=== PATIENT | female | born 1995 | race Caucasian/White ===

== ENCOUNTER 2025-10-04 07:06 | Emergency (ER) | payer MEDICAID, OTHER ==
[~2025-10-04] VITALS: Ht 177.8 cm; Wt 106.9 kg
[2025-10-04 07:09] VITALS: TEMP 98.4
--- NOTE | 2025-10-04 07:32 | ED.PDOC ---
GI ASSESSMENT HPI Comments A 30 YEAR OLD FEMALE PRESENTS TO THE ED WITH COMPLAINT OF PELVIC PAIN. PATIENT REPORTS THAT SHE HAS BEEN EXPERIENCING SUPRAPUBIC PAIN WITH ASSOCIATED RADIATION TO HER LEFT PELVIC REGION FOR THE PAST 3 DAYS. PATIENT RELAYS THAT HER PAIN ALSO RADIATES INTO HER BACK. PATIENT STATES THAT SHE CURRENTLY HAS AN IUD IN PLACE, HAVING BEEN PLACED A LONG TIME AGO. PATIENT STATES SHE ALSO SUFFERS FROM CHRONIC CONSTIPATION, CURRENTLY EXPERIENCING IT AT THIS TIME. PATIENT DENIES FEVER, CHILLS, SHORTNESS OF BREATH, CHEST PAIN, DIARRHEA, DYSURIA, NAUSEA, VOMITING, HEADACHE, OR OTHER COMPLAINTS. NO OTHER SYMPTOMS OR MODIFYING FACTORS AT THIS TIME. PATIENT IS ALERT, ORIENTED X 4, AND HAS STEADY GAIT. Chief Complaint: Abdominal Pain Time Seen by MD: 07:31 Reviewed Notes: Nurses Notes, Medications, Allergies Allergies: Coded Allergies: NO KNOWN ALLERGIES (Unverified , 10/04/25) Information Source: Patient Mode of Arrival: Ambulatory Timing: Days Duration: Since onset Prehospital treatment: None Quality: Aching, Cramping, Colicky Vomitus: None Stool: Normal Severity: Moderate Recent: None Pain Location: LLQ Modifying Factors: Nothing Associated sign and symptoms: Other (PELVIC PAIN ) Past Medical History PAST MEDICAL HISTORY: Anxiety, High Lipids Past Medical History (Other): CHRONIC CONSTIPATION Surgical History: Denies all surgeries 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 History Family History Family History: Reviewed,noncontributory to illness Social History Smoker: Non-Smoker Alcohol: Denies ETOH Use Drugs: Denies Drug Use Lives In: Home Constitutional: denies: chills, diaphoresis, fatigue, fever, malaise, sweats, weakness, others EENTM: denies: blurred vision, double vision, ear bleeding, ear discharge, ear drainage, ear pain, ear ringing, eye pain, eye redness, hearing loss, mouth pain, mouth swelling, nasal discharge, nose bleeding, nose congestion, nose pain, photophobia, tearing, throat pain, throat swelling, voice changes, others Respiratory: denies: cough, hemoptysis, orthopnea, SOB at rest, shortness of breath, SOB with excertion, stridor, wheezing, others Cardiovascular: denies: chest pain, dizzy spells, diaphoresis, Dyspnea on exertion, edema, irregular heart beat, left arm pain, lightheadedness, palpitations, PND, syncope, others Gastrointestinal: reports: abdominal pain; denies: abdomen distended, blood streaked bowels, constipated, diarrhea, dysphagia, difficulty swallowing, hemat emesis, melena, nausea, poor appetite, poor fluid intake, rectal bleeding, rectal pain, vomiting, others Genitourinary: reports: pain (LEFT PELVIC ); denies: abnormal vagina bleeding, burning, dyspareunia, dysuria, flank pain, frequency, hematuria, incontinence, , vagina discharge, urgency, others Neurological: denies: dizziness, fainting, headache, left sided numbness, left sided weakness, numbness, paresthesia, pre-existing deficit, right sided numbness, right sided weakness, seizure, speech problems, tingling, tremors, weakness, others Musculoskeletal: denies: back pain, gout, joint pain, joint swelling, muscle pain, muscle stiffness, neck pain, others Integumetry: denies: bruises, change in color, change in hair/nails, dryness, laceration, lesions, lumps, rash, wounds, others Allergic/Immunocompromised: denies: Difficulty Healing, Frequent Infections, Hives, Itching, others Hematologic/Lymphatic: denies: anemia, blood clots, easy bleeding, easy bruising, swollen glands, others Endocrine: denies: excessive hunger, excessive sweating, excessive thirst, excessive urination, flushing, intolerance to cold, intolerance to heat, unexplained weight gain, unexplained weight loss, others Psychiatric: denies: anxiety, bipolar disorder, depression, hopeless, panic disorder, schizophrenia, sleepless, suicidal, others All Other Systems: Reviewed and Negative Physical Exam General Appearance: No Apparent Distress, Obese HEENT: Normal ENT Inspection, PERRL/EOMI Neck: Full Range of Motion, Non-Tender, Normal, Normal Inspection Respiratory: Chest Non-Tender, Lungs Clear, No Accessory Muscle Use, No Respiratory Distress, Normal Breath Sounds Cardiovascular: No Edema, No JVD, No Murmur, No Gallop, Normal Peripheral Pulses, Regular Rate/Rhythm Breast Exam: Deferred Gastrointestinal: No Organomegaly, No Pulsatile Mass, Normal Bowel Sounds, Soft, Suprapubic (TENDERNESS, NO GUARDING AND REBOUND TENDERNESS. ), Tenderness (LEFT LEFT PELVIC. ) Genitalia: Deferred Pelvic: Normal External Exam, Tender Uterus, Other (TENDERNESS ON LEFT PELVIC, NO GUARDING AND REBOUND TENDERNESS. 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 Was a procedure done?: No GI differential Dx Differential Diagnosis: Constipation, Gastritis/PUD, Gastroenteritis, Inflammatory BD, UTI, Kidney Stone, Other (OVARIAN CYST, UTERINE FIBROID ) X-Ray, Labs, Meds, VS Vital Signs Date Time Temp Pulse Resp B/P (MAP) Pulse Ox O2 Delivery O2 Flow Rate FiO2 10/04/25 08:37 75 16 127/85 (99) 100 10/04/25 07:09 98.4 66 18 123/84 99 98.4 Lab Test 10/04/25 07:35 10/04/25 07:34 Range/Units Urine Color Yellow Yellow Urine Clarity Clear Clear Urine pH 6.0 5.0-9.0 Urine Specific [place] 1.023 1.001-1.035 Urine Protein Negative Negative Urine Ketones Negative Negative Urine Blood Negative Negative /uL Urine Nitrite Negative Negative Urine Bilirubin Negative Negative Urine Urobilinogen Normal Negative mg/dL Urine Leukocyte Esterase Negative Negative /uL Urine RBC 3 0 - 4 /hpf Urine Microscopic WBC 1 0-5 /HPF Urine Squamous Epithelial Cells Few <5 /hpf Urine Bacteria None seen None Seen /hpf Urine Glucose Normal Normal mg/dL Urine Test Negative Negative White Blood Count 7.5 4.4-10.8 10^3/uL Red Blood Count 4.69 4.0-5.20 10^6/uL Hemoglobin 13.7 12.2-16.2 g/dL Hematocrit 41.2 36.0-46.0 % Mean Corpuscular Volume 87.8 80.0-100.0 fL Mean Corpuscular Hemoglobin 29.2 28.0-32.0 pg Mean Corpuscular Hemoglobin Concent 33.3 32.0-36.0 g/dL Red Cell Distribution Width 13.0 11.8-14.3 % Platelet Count 310 140-450 10^3/uL Mean Platelet Volume 7.4 6.9-10.8 fL Neutrophils (%) (Auto) 64.0 37.0-80.0 % Lymphocytes (%) (Auto) 28.8 10.0-50.0 % Monocytes (%) (Auto) 4.5 0.0-12.0 % Eosinophils (%) (Auto) 1.9 0.0-7.0 % Basophils (%) (Auto) 0.8 0.0-2.0 % Neutrophils # (Auto) 4.8 1.6-8.6 10 ^3/uL Lymphocytes # (Auto) 2.2 0.4-5.4 10 ^3/uL Monocytes # (Auto) 0.3 0-1.3 10 ^3/uL Eosinophils # (Auto) 0.1 0-0.8 10 ^3/uL Basophils # (Auto) 0.1 0-0.2 10 ^3/uL Nucleated Red Blood Cells 0.2 % Sodium Level 143 136-145 mmol/L Potassium Level 4.4 3.5-5.1 mmol/L Chloride Level 108 H 98-107 mmol/L Carbon Dioxide Level 26 20-31 mmol/L Anion Gap 9 5-15 Blood Urea Nitrogen 7 L 9-23 mg/dL Creatinine 1.02 0.550-1.02 mg/dL Glomerular Filtration Rate Calc 76 >90 mL/min BUN/Creatinine Ratio 6.9 L 10.0-20.0 Serum Glucose 106 74-106 mg/dL Calcium Level 9.6 8.7-10.4 mg/dL PELVIC US: 1. Grossly unremarkable pelvic ultrasound.PATIENT: ROSA HASSAN ACCT: [id number]: [id number] : 1995 LOC: ER ROOM / BED: / AGE / SEX: 30 / F ADM STATUS: REG ER SERVICE 0728 ORDERING PHYSICIAN: KAREN ALCARAZ PROCEDURE(s): PELUS - PELVIC REASON: SUPRAPUBIC PAIN TO LEFT PELVIC ORDER NUMBER(s): [id number], ACCESSION NUMBER(s): [id number] INDICATION: SUPRAPUBIC PAIN TO LEFT PELVIC TECHNIQUE: Multiple real-time grayscale transabdominal and transvaginal sonographic images along with color and duplex Doppler of the uterus and ovaries were obtained. COMPARISON: None FINDINGS: The uterus measures 7.1 x 3.4 x 4.3 cm. Intrauterine device in satisfactory position. Endometrium measures 0.4 cm. Right ovary measures 2.9 x 2.1 x 2.7 cm with normal Doppler color flow Left ovary measures 2.1 x 1.7 x 2.9 cm with normal Doppler color flow IMPRESSION: 1. Grossly unremarkable pelvic ultrasound. ATED BY: СЕРГЕЙ MCINTOSH MD DICTATED DATE/TIME: 10/04/25849 SIGNED BY: СЕРГЕЙ MCINTOSH MD SIGNED DATE/TIME: 10/04/25849 CC: X-Ray, Labs, Meds, VS Comment EXTERNAL MEDICAL RECORDS REVIEWED: [NONE] INDEPENDENT HISTORIANS: [NONE] SOCIAL DETERMINANTS OF HEALTH: [NONE] LABS ORDERED: UA, CBC, BMP, PREG URINE REVIEWED AND INTERPRETED RESULTS: PELVIC US, XR KUB IMAGING ORDERED: PELVIC US, XR KUB INTERPRETED BY ME. CONSTIPATION NOTED. NO FRACTURES OR DISLOCATION. PENDING RADIOLOGIST REPORT. TREATMENTS ORDERED: NONE PROCEDURES PERFORMED: NONE CRITICAL CARE TIME: NONE I HAVE DISCUSSED THE PATIENT WITH THE ATTENDING PHYSICIAN DR. VIZCAINO AND HE AGREES WITH THE PATIENT'S PLAN OF CARE AND DISPOSITION. BASED ON HISTORY OF PRESENT ILLNESS, AND PHYSICAL EXAM, PATIENT WILL BE DISCHARGED HOME. DISCUSSED PLAN FOR DISCHARGE HOME WITH RX LACTULOSE. SHARED DECISION MAKING: DISCUSSED WITH PATIENT THAT THEIR WORKUP WAS NORMAL. PATIENT INSTRUCTED TO FOLLOW UP WITH PRIMARY CARE PROVIDER IN 1-2 DAYS FOR RE-EVALUATION OF SYMPTOMS. PATIENT VERBALIZES UNDERSTANDING TO RETURN TO ED FOR NEW OR WORSENING SYMPTOMS OR IF FOLLOW UP WITH PCP CANNOT BE OBTAINED. PATIENT FEELS COMFORTABLE GOING HOME AT THIS TIME. ALL QUESTIONS ADDRESSED AT TIME OF DISCHARGE. Time of 1ST Reevaluation: 09:33 Reevaluation 1ST: Improved Patient Education/Counseling: Diagnosis, Treatment, Need For Follow Up Family Education/Counseling: Diagnosis, Treatment, No Family Present Medical Screening: No EMC Exist At This Time SEPSIS Sepsis Screen Date sepsis recognized/suspect: Oct 04, 2025 Time Sepsis recognized/suspect: 0711 Recent Procedure: No On Antibiotic Therapy: No Respiratory Rate >20: No Heart Rate >90: No Temp<36 C (96.8 F) or >38.3 C: No SBP <90 or MAP <65 mmHG: No New Acute Mental Status Change: No Is the patient on CPAP, BIPAP,: No Physician Orders Pelvic (10/04/25 07:28) Transvaginal Us Non Ob (10/04/25 08:02) Kub Abdomen Single View (10/04/25 08:53) Vital Signs Date Time Temp Pulse Resp B/P (MAP) Pulse Ox O2 Delivery O2 Flow Rate FiO2 10/04/25 08:37 75 16 127/85 (99) 100 10/04/25 07:09 98.4 66 18 123/84 99 98.4 Laboratory Tests Test 10/04/25 07:34 White Blood Count 7.5 10^3/uL (4.4-10.8) Departure 1 Departure Time of Disposition: 09:33 Impression: Primary Impression: Constipation Qualified Codes: K59.00 - Constipation, unspecified Disposition: 01 HOME / SELF CARE / HOMELESS Condition: Stable Additional Instructions: FOLLOW-UP WITH PCP IN 1 TO 2 DAYS. TAKE MEDICATIONS PRESCRIBED. RETURN TO ED FOR ANY NEW OR WORSENING SYMPTOMS. e-Prescriptions Lactulose (Lactulose) 10 Gm/15 Ml Lucia 30 ML PO TID PRN, #300 ML Prov: KAREN ALCARAZ 10/04/25 Discharged With: Self Critical Care Note Critical Care Time?: No Stability Stability form required: No Heart Score Heart Score: Heart Score Response (Comments) Value History N/A 0 EKG N/A 0 Age N/A 0 Risk Factors N/A 0 Troponin N/A 0 Total 0 I personally scribed for KAREN ALCARAZ ([email or web address]) on 10/04/25 at 07:32. Electronically submitted by Jeff Morgan ([email or web address]). I personally scribed for KAREN ALCARAZ ([email or web address]) on 10/04/25 at 08:55. Electronically submitted by Jeff Morgan ([email or web address]). I personally scribed for KAREN ALCARAZ ([email or web address]) on 10/04/25 at 09:25. Electronically submitted by Jeff Morgan ([email or web address]). I personally scribed for KAREN ALCARAZ ([email or web address]) on 10/04/25 at 09:31. Electronically submitted by Jeff Morgan ([email or web address]). KAREN ALCARAZ Oct 04, 2025 07:32
[2025-10-04 07:43] LABS: Hematocrit 41.2 % (36.0-46.0); Hemoglobin 13.7 g/dL (12.2-16.2); Mean Corpuscular Hemoglobin 29.2 pg (28.0-32.0); Mean Corpuscular Volume 87.8 fL (80.0-100.0); Nucleated Red Blood Cells % 0.2 %
[2025-10-04 07:45] LABS: Urine Protein, UAD Negative (Negative)
[2025-10-04 07:54] LABS: Potassium 4.4 mmol/L (3.5-5.1); Sodium 143 mmol/L (136-145)
[2025-10-04 07:55] LABS: Anion Gap 9 (5-15); Carbon Dioxide 26 mmol/L (20-31)
[2025-10-04 07:56] LABS: Calcium 9.6 mg/dL (8.7-10.4)
[2025-10-04 08:01] LABS: BUN/Creatinine Ratio 6.9 (10.0-20.0)
[2025-10-04 08:04] LABS: Blood Urea Nitrogen 7 mg/dL (9-23); Chloride 108 mmol/L (98-107); Glucose 106 mg/dL (74-106)
[2025-10-04 08:37] VITALS: BP 127/85; PULSE 75; RESP 16; O2SAT 100
--- NOTE | 2025-10-04 08:53 | DVH ---
INDICATION: SUPRAPUBIC PAIN TO LEFT PELVIC TECHNIQUE: Multiple real-time grayscale transabdominal and transvaginal sonographic images along with color and duplex Doppler of the uterus and ovaries were obtained. COMPARISON: None FINDINGS: The uterus measures 7.1 x 3.4 x 4.3 cm. Intrauterine device in satisfactory position. Endometrium measures 0.4 cm. Right ovary measures 2.9 x 2.1 x 2.7 cm with normal Doppler color flow Left ovary measures 2.1 x 1.7 x 2.9 cm with normal Doppler color flow IMPRESSION: 1. Grossly unremarkable pelvic ultrasound.
[2025-10-04] MEDS ORDERED: LACT10SO3 PO (09:35)
--- NOTE | 2025-10-04 09:41 | DVH ---
Date: 10/04/2025 08:56 AM Examination: XY KUB ABDOMEN SINGLE VIEW History: PELVIC PAIN, POSSIBLE CONSTIPATION COMPARISON: None TECHNIQUE: Frontal views of the abdomen was obtained. FINDINGS: Bowel gas pattern is unremarkable. The lung bases are unremarkable. No acute osseous abnormality identified. IMPRESSION: Nonobstructive bowel gas pattern. LARGE STOOL BURDEN.
== END 2025-10-04 09:36 | disposition home or self-care (01) ==
LOC: ER 07:06
DX: K59.00 Constipation, unspecified (principal); R10.20 Pelvic and perineal pain unspecified side; F41.9 Anxiety disorder, unspecified; E78.5 Hyperlipidemia, unspecified; Z98.890 Other specified postprocedural states
CPT/HCPCS: 36415; 74018; 76830; 76856; 80048; 81001; 81025; 85025